=== PATIENT | male | born 2000 | race Caucasian/White ===

== ENCOUNTER 2021-11-13 19:36 | Emergency (ER) | payer MEDICARE, MEDICAID, SELFPAY ==
[2021-11-13 19:48] VITALS: BP 130/82; PULSE 120; RESP 25; TEMP 36.8; O2SAT 98; BMI 28.5
[2021-11-13] MEDS: HaloperidoL 5 MG TABLET PO (21:27)
[2021-11-13] MEDS: LORazepam 1 MG TABLET 2 MG PO (21:27)
[2021-11-13 21:39] LABS: COVID-19 Test Negative (Negative)
--- NOTE | 2021-11-13 22:26 | PC.NURSE ---
Patient uncooperative with care, demanding discharge refused to hand over his phone, patient was explained whole ED POD process, agreed to take po medication, Haldol 5 mg PO and Ativan 2 mg po administered at 2126 as ordered with positive effect, patient currently in bed appears sleeping, VSS, will continue to monitor.
--- NOTE | 2021-11-14 00:11 | ED.PSYCH ---
HPI - Psych General Chief Complaint: Psychiatric Symptoms Stated Complaint: Crisis/SI w attempt Time Seen by Provider: 11/13/21 20:49 Source: patient and RN notes reviewed Mode of arrival: ambulatory Limitations: other (Patient poor historian and appears to be in an acute crisis.) History of Present Illness HPI Narrative: This is a 21-year-old male history of schizophrenia and bipolar disorder presenting to the emergency department with a [facility] staff for for a psychiatric evaluation. According to patient he is a lot of stress going on, he tells me he tried to reach out to crisis however they did not want help me he tells me he decided to come in willingly to the emergency department because I need help . He tells me there is too much going on in his mind for him to tell me what is going on. Tells me he is anxious, depressed. He tells me he feels like he is having a head barlow . He tells me that there is a precipitating event however he is not able to elaborate on this event. He endorses visual and auditory hallucinations. He tells me he uses ecstasy sometimes and smokes weed. Denies any other drugs, alcohol and tobacco use. He denies homicidal ideation. Makes vague SI comments without specific plan. Denies medical complaints at this time. Patient is a very poor historian and I am unable to get a great history on this patient however I did build a good report with the patient, he is following instructions, cooperative. MD complaint: suicidal ideation, feels depressed and anxiety History of same: Yes Relieving factors: none Exacerbating factors: none Associated psychiatric symptoms: none Associated symptoms: denies other symptoms Treatments prior to arrival: none If self harm: admits thoughts of self harm Related Data Home Medications Medication Instructions Recorded Confirmed No Known Home Meds 11/13/21 11/13/21 Allergies Allergy/AdvReac Type Severity Reaction Status Date / Time No Known Allergies Allergy Verified 11/13/21 19:55 Review of Systems Review of Systems: Constitutional : No Weight loss, No Fever, No Chills, No Fatigue, No Malaise ENT/Mouth : No sore throat, No Rhinorrhea Eyes: No Eye Pain, No Swelling, No Redness Cardiovascular : No Chest Pain, No SOB, No Dyspnea on Exertion, No Orthopnea, No Edema, No Palpitations Respiratory : No Cough, No Sputum, No Wheezing Gastrointestinal : No Nausea, No Vomiting, No Diarrhea, No Constipation, No abdominal Pain, No Hematochezia, No Melena Genitourinary : No Dysuria, No Urinary Frequency, No Hematuria, Musculoskeletal : No joint pain, No Myalgias, No Joint Swelling Skin : No Skin Lesions, No rash Neuro : No Weakness, No Numbness, No Dizziness, No Headache Psych : + Anxiety/Panic, + Depression, + SI All other systems reviewed and are negative Yes all other systems are reviewed and are negative [facility] Past Medical History Attestation statement: The following information was validated with the patient. Source: old records reviewed and nursing notes reviewed Social History Social History Advance Directives: No Advance Directives Information Provided: No Physical Exam Vital Signs: Vital Signs: Last Vital Signs Temp 98.3 F 11/13/21 19:48 Pulse 120 H 11/13/21 19:48 Resp 25 H 11/13/21 19:48 BP 130/82 11/13/21 19:48 Pulse Ox 98 11/13/21 19:48 BMI result Body Mass Index 28.5 VSS Appearance: Alert.? Oriented X3.? No acute distress.? Head: Normocephalic, atraumatic, no step-offs or deformities Eyes: Pupils equal, round and reactive to light.? ENT: Pharynx normal.? Neck: Normal inspection.? Neck supple.? CVS: Normal heart rate and rhythm.? Pulses normal.? Respiratory: No respiratory distress.? Breath sounds normal.? Abdomen: Soft and nontender.? Skin: Skin warm and dry.? Normal skin color.? Normal skin turgor.? Extremities: No lower extremity edema.? No calf ttp. 5/5 strength to bilateral upper and lower extremities Back: No midline tenderness, no C-spine tenderness, full range of motion, no CVA tenderness bilaterally Neuro: Oriented X 3.? No motor deficit.? No sensory deficit. CN 2-12 intact Course Reevaluation(s) Reevaluation #1: Patient is COVID negative. He continues to refuse lab work. Multiple techs from the behavioral pod have tried to draw this patient's labs however he has refuse. We will continue to try. At this time patient will be placed in physician observation to allow more time for patient to be evaluated by the behavioral health team. At time the observation was started patient common cooperative no acute distress with stable vitals. Gave report to Dr. Jones Time: 01:16 MDM - Psych MDM Narrative Medical decision making narrative: 2014 This is a 21-year-old male presenting to the emergency department with acute psychiatric crisis. Physical examination significant for tearful, anxious male. No other abnormalities. Patient was starting to get worked up when he had to get changed over, and had to give up his phone. Very agitated trying to leave the department. Initially he was becoming aggressive however I was able to speak to patient with security by my side, deescalated the situation. Patient agreed to p.o. medication gave patient's Zyprexa and Ativan and he tells me he feels like he needs something to help him calmed down and to stop the voices in his head. Patient willingly took these medications. Plan at this time is medical clearance Medical Records Attestation: I reviewed the patient's medical records. Lab Data Attestation: I reviewed the patient's lab results. Labs: Lab Results 11/13/21 Range/Units 21:16 COVID-19 (BILLY) Negative (Negative) COVID-19 Clin Com See Note Critical Care Time Critical Care Time Critical Care Time: No Discharge Plan Discharge Clinical Impression: Acute psychosis Patient Disposition: Still a Patient Prescriptions: No Action No Known Home Meds 0RF
--- NOTE | 2021-11-14 01:02 | PC.NURSE ---
PT refused labs at this time PA was notify
--- NOTE | 2021-11-14 05:29 | PC.NURSE ---
Patient slept through the night, no distress observed/reported, medication compliant, VSS, Behavior non concerning, BHN referral completed/confirmed/pending evaluation am, will continue to monitor.
--- NOTE | 2021-11-14 05:45 | PC.NURSE ---
Patient refused blood order, stated he is afraid of needle, provider and lab notified, urine pending
--- NOTE | 2021-11-14 07:03 | PC.NURSE ---
patient appears to remain asleep at present respirations are even and unlabored patient appears in no distress
--- NOTE | 2021-11-14 12:51 | MHC.CARE ---
Pt seen by N for crisis assessment, disposition was for inpatient level of care and N will do bed search and get insurance authorization.
[2021-11-14 14:52] VITALS: BP 122/77; PULSE 84; TEMP 37.3; O2SAT 98
--- NOTE | 2021-11-14 15:49 | PC.NURSE ---
client came out and expressed desire to be reassessed by bhn. expressed this desire to care team. patient seemed to feel this was unfair and expressed this to t/w.
--- NOTE | 2021-11-14 16:44 | PC.NURSE ---
patient has female friend visitor.
[2021-11-15 01:29] LABS: Amphetamine Screen Urine Not Detected (Not Detect); Barbiturates, Urine Not Detected (Not Detect); Benzodiazepines Screen Urine Not Detected (Not Detect); Cannabinoid Screen Urine POSITIVE (Not Detect); Cocaine Screen Urine Not Detected (Not Detect); Fentanyl, urine Not Detected (Not Detect); Opiate Screen Urine Not Detected (Not Detect); Phencyclidine Screen Urine Not Detected (Not Detect)
[2021-11-15 02:57] VITALS: BP 125/72; PULSE 70; RESP 17; TEMP 37.3; O2SAT 97
--- NOTE | 2021-11-15 06:23 | PC.NURSE ---
Patient slept through the night, no distress observed/reported, currently not on any medication, VSS, behavior calm and non concerning, disposition per [facility] is section 12 inpatient bed search, no update on bed search, will continue to monitor.
--- NOTE | 2021-11-15 07:30 | PC.NURSE ---
patient appears to remain asleep at present respirations are even and unlabored patient appears in no distress
== END 2021-11-15 10:20 | disposition home or self-care (01) ==
PROVIDERS: Physician Assistant Medical; Emergency Provider Internal Medicine
DX: F31.9 Bipolar disorder, unspecified (principal); R45.851 Suicidal ideations; F29 Unspecified psychosis not due to a substance or known physiological condition; F12.90 Cannabis use, unspecified, uncomplicated; Z20.822 Contact with and (suspected) exposure to COVID-19; Z79.899 Other long term (current) drug therapy
CPT/HCPCS: 80307; 87635; 99284; 99285

== ENCOUNTER 2023-02-28 11:55 | Inpatient (IN) | payer OTHER, SELFPAY ==
[2023-02-28 12:03] VITALS: BP 180/100; PULSE 87; PULSE 99; RESP 18; TEMP 36.6; O2SAT 99; BMI 30.3
--- NOTE | 2023-02-28 12:03 | ECG_ITS ---
Test Reason : MED CLEARANCE Blood Pressure : / mmHG Vent. Rate : 076 BPM Atrial Rate : 076 BPM P-R Int : 132 ms QRS Dur : 100 ms QT Int : 374 ms P-R-T Axes : 053 051 015 degrees QTc Int : 420 ms Normal sinus rhythm with sinus arrhythmia Normal ECG No previous ECGs available Referred By: Katherine Anderson Electronically Signed By:Edgar Champion
[2023-02-28 12:12] VITALS: BP 148/95; PULSE 87; RESP 18; TEMP 36.6; O2SAT 99
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
[2023-02-28 12:40] LABS: MANUAL DIFF FLAG NO
[2023-02-28 12:47] LABS: Basophils Absolute Auto 0.1 X10*3/uL (0.0-0.2); Basophils Percent Auto 0.7 % (0-2); Eosinophils Absolute Auto 0.2 X10*3/uL (0.0-0.4); Eosinophils Percent Auto 2.3 % (0-4); Hematocrit 49.4 % (42.0-52.0); Hemoglobin 16.4 g/dl (14.0-18.0); Imm Gran Abs Auto 0.02 X10*3/uL (0.00-0.03); Imm Gran Pct Auto 0.2 % (0.0-0.4); Lymphocytes Absolute Auto 3.2 X10*3/uL (1.2-4.9); Mean Corpuscular HGB Conc 33.2 g/dl (31.0-36.0); Mean Corpuscular Volume 84.3 fL (80.0-98.0); Mean Platelet Volume 9.3 fL (9.4-12.4); Monocytes Absolute Auto 0.7 X10*3/uL (0.1-1.2); Monocytes Percent Auto 8.9 % (2-11); Neutrophils Absolute Auto 4.2 x10*3/uL (2.0-8.3); Neutrophils Percent Auto 49.9 % (45-73); Platelet Count 359 X10*3/uL (160-400); Red Blood Count 5.86 X10*6/uL (4.60-5.80); Red Cell Distribution Width 13.5 % (11.0-16.0); White Blood Count 8.3 X10*3/uL (4.8-10.8)
--- NOTE | 2023-02-28 12:52 | PC.NURSE ---
Patients girlfriend visiting at this time
[2023-02-28 13:00] LABS: Acetaminophen LAB < 17 mcg/mL (<30); Alanine Aminotransferase 120 U/L (0-40); Albumin Level 4.5 g/dL (3.5-5.0); Alkaline Phosphatase 77 U/L (39-117); Anion Gap 16 (12-20); Aspartate Amino Transferase 48 U/L (5-37); Bilirubin Total 0.7 mg/dL (0.0-1.0); Blood Urea Nitrogen 9 mg/dL (9-16); Calcium 9.5 mg/dL (8.4-10.2); Carbon Dioxide 22 mmol/L (22-29); Chloride 105 mmol/L (96-108); Creatinine Clr Calc Pharmacy 148.7; Estimated Glomerular Filt Rate > 60; Ethanol < 10 mg/dL; Glucose Random 98 mg/dL (60-115); Salicylate < 5.0 mg/dL (15-30); Sodium 139 mmol/L (135-145)
[2023-02-28 13:14] LABS: COVID-19 Test Negative (Negative); IDNOW Serial# 6674DD1D
--- NOTE | 2023-02-28 13:15 | ED_ITS ---
HPI - Psych General Chief Complaint: Psychiatric Symptoms Stated Complaint: SEC 12 Time Seen by Provider: 02/28/23 12:04 Source: patient, EMS and RN notes reviewed Mode of arrival: ambulatory Limitations: no limitations History of Present Illness HPI Narrative: Patient is a 22-year-old male with history of schizophrenia and bipolar disorder presenting to the Emergency Department on a Section 12 after reportedly making suicidal statements at home and becoming aggressive towards his family. Patient currently denies any suicidal or homicidal ideations. He denies any auditory or visual hallucinations. He states that his mother recently became his legal guardian and was ?trying to make a point. ? He states he has been with his girlfriend every day this week and that she can verify he has not performed any self-harm behaviors. He denies any physical complaints. MD complaint: suicidal ideation Onset (ago): hour(s) Associated symptoms: denies other symptoms Treatments prior to arrival: none Related Data Home Medications Medication Instructions Recorded Confirmed duloxetine 60 mg PO DAILY 02/28/23 02/28/23 famotidine 20 mg tablet 20 mg PO BID 02/28/23 02/28/23 trazodone 50 mg tablet 50 mg PO BEDTIME 02/28/23 02/28/23 Allergies Allergy/AdvReac Type Severity Reaction Status Date / Time No Known Allergies Allergy Verified 11/13/21 19:55 Review of Systems Review of Systems: As per HPI. Yes all other systems are reviewed and are negative Constitutional: Constitutional: Reports as per HPI [facility] Social History Social History Alcohol intake: current Alcohol intake frequency: a few times a week Smoked in Last 30 Days: Yes Use of substances other than those prescribed or required for medical reasons: Yes Substance Use Type: Marijuana Substance Use Frequency: Chronic Longstanding Advance Directives: No Advance Directives Information Provided: No Physical Exam Vital Signs: Vital Signs: Last Vital Signs Temp 98 F 03/01/23 20:57 Pulse 68 03/01/23 20:57 Resp 18 03/01/23 20:57 BP 141/86 H 03/01/23 20:57 Pulse Ox 98 03/01/23 20:57 O2 Del Method Room Air 03/01/23 20:57 BMI result Body Mass Index 30.3 Vital signs have been reviewed and appear to be correct. Blood pressure elevated. Heart rate normal. Respiratory rate normal. Temperature normal. Oxygen saturation normal. Const: General: cooperative, healthy appearing and no acute distress Orientation/consciousness: oriented to person, oriented to place, oriented to time and patient oriented x3 Limitations: no limitations HEENT: Head: Yes normocephalic and Yes atraumatic Ears: external ears normal General nose exam: Normal external nose present Face and sinus: Yes face symmetric Mouth: oropharynx normal and moist mucous membranes Throat: Yes uvula midline Eyes: Pupils: Equal, round and reactive pupils present Neck: Neck: Yes normal visual inspection and Yes supple Resp: Effort & Inspection: normal respiratory effort and able to speak in complete sentences Auscultation: clear to auscultation bilaterally Cardio: Rate: regular rate Rhythm: regular rhythm Heart sounds: S1 normal heart sound present and S2 normal heart sound present GI: Palpation (GI): Soft to palpation and nontender Auscultation: normoactive bowel sounds : General: Yes no CVA tenderness Back/Spine/Pelvis: Back: no CVA tenderness Skin: General skin exam: elasticity normal and turgor normal Neuro: General: oriented to person, oriented to place, oriented to time, patient oriented x3, moves all extremities, no focal motor deficits and CN's II- XI intact bilaterally Cranial nerves: Yes Equal, round and reactive pupils present Cognition (Neuro): normal cognition Extrem: General: Yes full ROM, Yes no pedal edema and Yes no calf tenderness Psych: Appearance: grossly normal Mental Status: mental status grossly normal Speech and movement: Normal speech and movement present and Clear speech present Affect: normal affect Attitude: cooperative Thought process: Normal thought process present Thought content: suicidality, no homicidality, no delusions, no hallucinations and No Depressive thoughts present Insight: Fair insight present (Psych) Judgement: Fair judgement present (Psych) Course Reevaluation(s) Reevaluation #1: No events reported by the nurse overnight, VSS, continue Section 12, await for care team evaluation and disposition, continue with physician observation. Time: 08:33 Reevaluation #2: No acute events overnight, continue physician observation, inpatient bed search. Time: 07:21 Medications Administered Generic Name Dose Route Start Last Admin Trade Name Freq PRN Reason Stop Dose Admin Duloxetine HCl 60 mg 02/28/23 15:45 03/01/23 09:20 Duloxetine Hcl 60 Mg Capsule. PO 60 mg DAILY KAY Administration Famotidine 20 mg 02/28/23 21:00 03/01/23 20:42 Famotidine 20 Mg Tablet PO Not Given BID KAY Trazodone HCl 50 mg 02/28/23 21:00 03/01/23 20:42 Trazodone Hcl 50 Mg Tablet PO 50 mg BEDTIME KAY Administration Medical Decision Making Medical Decision Making [facility] Narrative: Patient is a 22-year-old male with history of schizophrenia and bipolar disorder presenting to the Emergency Department on a Section 12 after reportedly making suicidal statements at home and becoming aggressive towards his family. On exam patient is awake, A+Ox3, VS WNL, afebrile, normal neurological exam without focal deficits, calm and cooperative, denies suicidal or homicidal ideation, denies hallucinations. Given reported symptoms and physical exam findings, initial differential includes anxiety, depression, bipolar disorder. Labs notable for negative Tylenol/salicylates/etoh, mild elevation of LFTs, otherwise unremarkable. Covid negative. Patient denies any abdominal pain. Will medically clear patient and place on physician observation pending CARE team eval. Differential Diagnosis Differential Diagnoses: The differential diagnosis associated with the presentation includes As per MDM. Admission/Observation Consideration of admission/observation: Escalation of care including admission/observation considered Lab Data [facility] Lab Attestation statement: I reviewed the patient's lab results. As per [facility]. 02/28/23 12:39 02/28/23 12:39 Labs: Lab Results 02/28/23 02/28/23 02/28/23 Range/Units 12:39 12:39 12:39 WBC (4.8-10.8) X10*3/uL RBC (4.60-5.80) X10*6/uL Hgb (14.0-18.0) g/dl Hct (42.0-52.0) % MCV (80.0-98.0) fL MCH (27.0-33.0) pg MCHC (31.0-36.0) g/dl RDW (11.0-16.0) % Plt Count (160-400) X10*3/uL MPV (9.4-12.4) fL Immature Gran % (Auto) (0.0-0.4) % Neut % (Auto) (45-73) % Lymph % (Auto) (20-40) % [place] % (Auto) (2-11) % Eos % (Auto) (0-4) % Baso % (Auto) (0-2) % Lymph # (Auto) (1.2-4.9) X10*3/uL [place] # (Auto) (0.1-1.2) X10*3/uL Eos # (Auto) (0.0-0.4) X10*3/uL Baso # (Auto) (0.0-0.2) X10*3/uL Abs Immat Gran (auto) (0.00-0.03) X10*3/uL Absolute Neuts (auto) (2.0-8.3) x10*3/uL Absolute Nucleated RBC (0.0-0.012) X10*3/uL Nucleated RBC % (auto) (0.0-0.2) /100WBC Sodium 139 (135-145) mmol/L Potassium 4.0 (3.3-5.1) mmol/L Chloride 105 (96-108) mmol/L Carbon Dioxide 22 (22-29) mmol/L Anion Gap 16 (12-20) BUN 9 (9-16) mg/dL Creatinine 0.87 (0.5-1.4) mg/dL Estim Creat Clear Calc 148.7 Estimated GFR > 60 Random Glucose 98 (60-115) mg/dL Calcium 9.5 (8.4-10.2) mg/dL Total Bilirubin 0.7 (0.0-1.0) mg/dL AST 48 H (5-37) U/L ALT 120 H (0-40) U/L Alkaline Phosphatase 77 (39-117) U/L Total Protein 8.0 (6.5-8.0) g/dL Albumin 4.5 (3.5-5.0) g/dL Urine Color Urine Appearance Urine pH (5.0-9.0) Ur Specific [place] (1.005-1.025) Urine Protein (Neg-Trace) mg/dL Urine Glucose (UA) (Negative) mg/dL Urine Ketones (Negative) mg/dL Urine Blood (Negative) Urine Nitrite (Negative) Ur Leukocyte Esterase (Negative) Salicylates < 5.0 L (15-30) mg/dL Urine Opiates Screen (Not Detect) Urine Fentanyl Screen (Not Detect) Acetaminophen < 17 (<30) mcg/mL Ur Barbiturates Screen (Not Detect) Ur Phencyclidine Scrn (Not Detect) Ur Amphetamines Screen (Not Detect) U Benzodiazepines Scrn (Not Detect) Urine Cocaine Screen (Not Detect) U Marijuana (THC) Screen (Not Detect) Ethyl Alcohol < 10 mg/dL COVID-19 (BILLY) Negative (Negative) COVID-19 Clin Com See Note 02/28/23 02/28/23 02/28/23 Range/Units 12:39 16:41 16:41 WBC 8.3 (4.8-10.8) X10*3/uL RBC 5.86 H (4.60-5.80) X10*6/uL Hgb 16.4 (14.0-18.0) g/dl Hct 49.4 (42.0-52.0) % MCV 84.3 (80.0-98.0) fL MCH 28.0 (27.0-33.0) pg MCHC 33.2 (31.0-36.0) g/dl RDW 13.5 (11.0-16.0) % Plt Count 359 (160-400) X10*3/uL MPV 9.3 L (9.4-12.4) fL Immature Gran % (Auto) 0.2 (0.0-0.4) % Neut % (Auto) 49.9 (45-73) % Lymph % (Auto) 38.0 (20-40) % [place] % (Auto) 8.9 (2-11) % Eos % (Auto) 2.3 (0-4) % Baso % (Auto) 0.7 (0-2) % Lymph # (Auto) 3.2 (1.2-4.9) X10*3/uL [place] # (Auto) 0.7 (0.1-1.2) X10*3/uL Eos # (Auto) 0.2 (0.0-0.4) X10*3/uL Baso # (Auto) 0.1 (0.0-0.2) X10*3/uL Abs Immat Gran (auto) 0.02 (0.00-0.03) X10*3/uL Absolute Neuts (auto) 4.2 (2.0-8.3) x10*3/uL Absolute Nucleated RBC 0.000 (0.0-0.012) X10*3/uL Nucleated RBC % (auto) 0.0 (0.0-0.2) /100WBC Sodium (135-145) mmol/L Potassium (3.3-5.1) mmol/L Chloride (96-108) mmol/L Carbon Dioxide (22-29) mmol/L Anion Gap (12-20) BUN (9-16) mg/dL Creatinine (0.5-1.4) mg/dL Estim Creat Clear Calc Estimated GFR Random Glucose (60-115) mg/dL Calcium (8.4-10.2) mg/dL Total Bilirubin (0.0-1.0) mg/dL AST (5-37) U/L ALT (0-40) U/L Alkaline Phosphatase (39-117) U/L Total Protein (6.5-8.0) g/dL Albumin (3.5-5.0) g/dL Urine Color Yellow Urine Appearance Clear Urine pH 7.0 (5.0-9.0) Ur Specific [place] 1.025 (1.005-1.025) Urine Protein Trace (Neg-Trace) mg/dL Urine Glucose (UA) Negative (Negative) mg/dL Urine Ketones Negative (Negative) mg/dL Urine Blood Negative (Negative) Urine Nitrite Negative (Negative) Ur Leukocyte Esterase Negative (Negative) Salicylates (15-30) mg/dL Urine Opiates Screen Not Detected (Not Detect) Urine Fentanyl Screen Not Detected (Not Detect) Acetaminophen (<30) mcg/mL Ur Barbiturates Screen Not Detected (Not Detect) Ur Phencyclidine Scrn Not Detected (Not Detect) Ur Amphetamines Screen Not Detected (Not Detect) U Benzodiazepines Scrn Not Detected (Not Detect) Urine Cocaine Screen Not Detected (Not Detect) U Marijuana (THC) Screen POSITIVE H (Not Detect) Ethyl Alcohol mg/dL COVID-19 (BILLY) (Negative) COVID-19 Clin Com Independent Interpretation I performed an independent interpretation of an: EKG Interpretation: Normal sinus rhythm, rate 76 bpm, normal MN and QT intervals. External Record Review External record reviewed: Inpatient record, Office record and Outpatient record Discharge Plan Discharge Clinical Impression: Suicidal ideation Patient Disposition: Still a Patient Prescriptions: No Action trazodone 50 mg tablet 50 mg PO BEDTIME famotidine 20 mg tablet 20 mg PO BID duloxetine tablet 60 mg PO DAILY Interventions: [place]-Suicide Risk Severity Scale Last Done: 03/02/23 03:57
--- NOTE | 2023-02-28 13:53 | PC.NURSE ---
Per August at [facility] patient has been staying at an apt in [place] with his uncle. Patient is not on the lease and is not able to return to the apartment. [facility] stating patient is homeless
--- NOTE | 2023-02-28 14:04 | PC.NURSE ---
Per pharmacist at [facility] on [address] stating trazodone 50mg was last filled february 16. Duloxetine 60mg ER daily was called in but was never picked up by patient.
--- NOTE | 2023-02-28 14:18 | MHC.EDTECH ---
Pt's mom dropped off some legal documents and ankle bracelet duplicate maker. T/w placed both chargers in Locker #1.
--- NOTE | 2023-02-28 15:18 | PC.NURSE ---
Legal guardian provided guardianship for an incapacitated person paperwork. temp guardianship expires february 28, 2023. guardian completed authorization to disclose protected health information for Jessica Tapia to access information related to patients location for probation location information.
[2023-02-28] MEDS: DULoxetine HCl 60 MG CAPSULE.DR PO (16:11)
[2023-02-28 16:58] LABS: Appearance Urine Clear; Color Urine Yellow; Glucose Urine UA Negative (Negative); Leukocyte Esterase Urine Negative (Negative); Nitrite Urine Negative (Negative); Specific Gravity - Urine 1.025 (1.005-1.025); Urine Blood Negative (Negative); Urine Ketones Negative (Negative); Urine Protein Trace mg/dL (Neg-Trace)
[2023-02-28 17:08] LABS: Amphetamine Screen Urine Not Detected (Not Detect); Barbiturates, Urine Not Detected (Not Detect); Benzodiazepines Screen Urine Not Detected (Not Detect); Cannabinoid Screen Urine POSITIVE (Not Detect); Cocaine Screen Urine Not Detected (Not Detect); Fentanyl, urine Not Detected (Not Detect); Opiate Screen Urine Not Detected (Not Detect); Phencyclidine Screen Urine Not Detected (Not Detect)
--- NOTE | 2023-02-28 17:46 | PC.NURSE ---
calm and cooperative, po med as ordered, denies pain or discomfort. Sitting in common area watching t.v at this time
[2023-02-28 18:14] VITALS: BP 129/78; PULSE 73; RESP 17; TEMP 36.4; O2SAT 97
[2023-02-28] MEDS: traZODone HCL 50 MG TABLET PO (19:54)
--- NOTE | 2023-03-01 06:01 | PC.NURSE ---
Patient slept through the night, selectively compliant with medication, per mother who is also the legal guardian of the patient reported patient is off his medication, patient was assessed by care team with disposition section section 12 inpatient bed search, patient has right ankle monitor, behavior non concerning, VSS, labs completed/resulted, will continue to monitor.
[2023-03-01] MEDS: Famotidine 20 MG TABLET PO (09:20)
[2023-03-01] MEDS: DULoxetine HCl 60 MG CAPSULE.DR PO (09:20)
--- NOTE | 2023-03-01 09:41 | PC.NURSE ---
notified that patient will have a bed at some point today. Patient has been calm and cooperative
--- NOTE | 2023-03-01 13:53 | PC.NURSE ---
PT woke up around 1pm agitated tearful disorganized thinking. Verbal out burst with care team when told she is going in patient.
--- NOTE | 2023-03-01 15:10 | PHA.MEDREC ---
Pharmacy Consult ? Medication Reconciliation Pharmacy has reviewed the medication reconciliation completed by nursing.
[2023-03-01] MEDS: traZODone HCL 50 MG TABLET PO (20:42)
[2023-03-01 20:57] VITALS: BP 141/86; PULSE 68; RESP 18; TEMP 36.6; O2SAT 98
--- NOTE | 2023-03-02 06:43 | PC.NURSE ---
Patient slept through the night, compliant with medication, patient was assessed by care team with disposition section section 12 inpatient bed search, possible admission today M3 or M5, patient has right ankle monitor, behavior non concerning, VSS, labs completed/resulted, will continue to monitor.
[2023-03-02] MEDS: DULoxetine HCl 60 MG CAPSULE.DR PO (09:49)
[2023-03-02] MEDS: Famotidine 20 MG TABLET PO ×2 (09:49→20:56)
[2023-03-02 09:51] VITALS: BP 135/73; PULSE 84; RESP 12; TEMP 36.7; O2SAT 99
--- NOTE | 2023-03-02 09:57 | PC.NURSE ---
assumed care of pt at 0700, resting quietly in room, medicated per SEP.
--- NOTE | 2023-03-02 12:22 | PC.NURSE ---
Assumed care for patient at 1100, pt is resting comfortably in bed at this time. Pt is on a 1:1 at this time due to ankle bracelet charging. Pt offers no complaints to this RN at this time
--- NOTE | 2023-03-02 13:12 | PC.NURSE ---
gave report to GAURANG Capellan on M5
[2023-03-02 14:44] VITALS: BP 160/91; PULSE 88; RESP 16; TEMP 36.2; O2SAT 98
--- NOTE | 2023-03-02 14:47 | PC.NURSE ---
03/02/23Tuesday Pt. signed a 3-day notice, up on 03/07/23Tuesday
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
--- NOTE | 2023-03-02 18:38 | PC.NURSE ---
T/w spoke with pt's legal guardian, Shayy Begum. She reported that verification of hospital admission and potential discharge dates needs to be faxed to pt's foreign service officer, Jessica Tapia (fax [phone]), out of [facility] [address], as soon as possible. Pt is on home confinement, and his GPS monitor continues to go off due to being at the hospital, and that a warrant will be put out for his arrest if the verification is not faxed. Dr. Bautista, Dr. Godinez, Irina Smart, and Tari Horne notified.
[2023-03-02 20:21] VITALS: BP 137/81; PULSE 84; TEMP 36.6
[2023-03-02] MEDS: traZODone HCL 50 MG TABLET PO (20:56)
[2023-03-03] MEDS: DULoxetine HCl 60 MG CAPSULE.DR PO (09:16)
[2023-03-03] MEDS: Famotidine 20 MG TABLET PO ×2 (09:16→22:15)
[2023-03-03 09:20] VITALS: BP 140/100; PULSE 85; RESP 18; TEMP 36.3; O2SAT 98
[2023-03-03 09:23] LABS: Estimated Average Glucose 100 mg/dL; Hemoglobin A1c % 5.1 %
[2023-03-03 09:34] LABS: Cholesterol 180 mg/dL; HDL Cholesterol 37 mg/dL; LDL Cholesterol Calculated 118 mg/dl; Magnesium 2.3 mg/dL (1.6-2.6); Triglycerides 128 mg/dL
[2023-03-03 09:42] LABS: Thyroid Stimulating Hormone 0.76 uIU/mL (0.32-4.0)
[2023-03-03 10:00] LABS: Folate 16.4 ng/mL (> or = 4.0); Vitamin B12 476 pg/mL (200-900)
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
[2023-03-03] MEDS: Lidocaine 4 % Patch ADH..PATCH 1 PATCH TRANSDERMA (11:46)
[2023-03-03] MEDS: Nicotine Polacrilex 2 MG GUM BUCCAL (11:56)
[2023-03-03 21:35] VITALS: BP 135/76; PULSE 84; TEMP 36.4; O2SAT 97
[2023-03-03] MEDS: traZODone HCL 50 MG TABLET PO (22:15)
[2023-03-03] MEDS: QUEtiapine Fumarate 200 MG TABLET PO (22:15)
[2023-03-04] MEDS: DULoxetine HCl 60 MG CAPSULE.DR PO (09:27)
[2023-03-04] MEDS: Famotidine 20 MG TABLET PO ×2 (09:27→22:09)
[2023-03-04 09:30] VITALS: BP 119/77; PULSE 78; RESP 18; TEMP 36.5
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
[2023-03-04 20:00] VITALS: BP 139/83; PULSE 93; RESP 18; TEMP 36.4; O2SAT 97
[2023-03-04] MEDS: traZODone HCL 50 MG TABLET PO (22:09)
[2023-03-04] MEDS: QUEtiapine Fumarate 200 MG TABLET PO (22:09)
[2023-03-05] MEDS: DULoxetine HCl 60 MG CAPSULE.DR PO (09:37)
[2023-03-05] MEDS: Famotidine 20 MG TABLET PO ×2 (09:37→22:06)
[2023-03-05 09:39] VITALS: BP 132/77; PULSE 71; RESP 18; TEMP 36.6; O2SAT 97
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
[2023-03-05 16:31] VITALS: BP 158/61; PULSE 92; TEMP 36.4; O2SAT 97
[2023-03-05] MEDS: traZODone HCL 50 MG TABLET PO (22:06)
[2023-03-05] MEDS: QUEtiapine Fumarate 200 MG TABLET PO (22:06)
[2023-03-06] MEDS: Famotidine 20 MG TABLET PO ×2 (09:18→22:14)
[2023-03-06] MEDS: DULoxetine HCl 60 MG CAPSULE.DR PO (09:18)
[2023-03-06 09:20] VITALS: BP 124/78; PULSE 78; RESP 18; TEMP 36.2; O2SAT 99
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
[2023-03-06 19:30] VITALS: BP 136/85; PULSE 104; RESP 18; TEMP 36.4; O2SAT 98
[2023-03-06] MEDS: QUEtiapine Fumarate 200 MG TABLET PO (22:14)
[2023-03-06] MEDS: traZODone HCL 50 MG TABLET PO (22:14)
[2023-03-07 08:00] VITALS: BP 149/95; PULSE 102; RESP 18; TEMP 36.9; O2SAT 97
[2023-03-07] MEDS: Famotidine 20 MG TABLET PO (09:27)
[2023-03-07] MEDS: DULoxetine HCl 60 MG CAPSULE.DR PO (09:28)
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
== END 2023-03-07 11:35 | disposition home or self-care (01) | DRG 885 ==
LOC: HO.ED 03-01 06:27 → HO.PM5 03-02 13:45
PROVIDERS: Physician Assistant Medical; Admitting Provider Psychiatry & Neurology Psychiatry; Emergency Provider Emergency Medicine; Visit Provider Clinical Nurse Specialist Psychiatric/Mental Health, Adult
DX: F20.9 Schizophrenia, unspecified (principal); R45.851 Suicidal ideations; F12.10 Cannabis abuse, uncomplicated; F17.210 Nicotine dependence, cigarettes, uncomplicated; Z71.6 Tobacco abuse counseling; Z88.0 Allergy status to penicillin; Z79.899 Other long term (current) drug therapy
CPT/HCPCS: 36415; 80053; 80061; 80143; 80179; 80307; 81003; 82607; 82746; 83036; 83735; 84439; 84443; 85025; 87635; 93005; 99285; S9485

== ENCOUNTER → 2023-02-28 12:03 | Outpatient (BNV) | payer OTHER, SELFPAY | PROVIDERS: Emergency Provider Emergency Medicine; Visit Provider Internal Medicine Cardiovascular Disease | DX: I49.9 Cardiac arrhythmia, unspecified (principal) | CPT/HCPCS: 93010 ==

== ENCOUNTER → 2023-03-02 13:42 | Outpatient (BNV) | payer OTHER, SELFPAY | PROVIDERS: Admitting Provider Psychiatry & Neurology Psychiatry; Emergency Provider Emergency Medicine; Visit Provider Clinical Nurse Specialist Psychiatric/Mental Health, Adult | DX: F20.89 Other schizophrenia (principal); F12.90 Cannabis use, unspecified, uncomplicated | CPT/HCPCS: 90792; 99231; 99239 ==

== ENCOUNTER 2023-06-28 16:16 | Inpatient (IN) | payer OTHER, SELFPAY ==
[2023-06-28 16:35] VITALS: BP 125/84; PULSE 97; RESP 18; TEMP 36.3; O2SAT 95
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
--- NOTE | 2023-06-28 17:24 | PC.NURSE ---
Pt refused flu vaccine at this time
[2023-06-28 22:00] VITALS: BP 135/80; PULSE 97; RESP 16; TEMP 36.8; O2SAT 95
[2023-06-29 07:05] VITALS: BP 131/81; PULSE 110; TEMP 36.3; O2SAT 97
[2023-06-29 08:10] LABS: MANUAL DIFF FLAG NO
[2023-06-29 08:15] LABS: Basophils Absolute Auto 0.1 X10*3/uL (0.0-0.2); Basophils Percent Auto 0.6 % (0-2); Eosinophils Absolute Auto 0.4 X10*3/uL (0.0-0.4); Eosinophils Percent Auto 3.3 % (0-4); Hematocrit 54.3 % (42.0-52.0); Hemoglobin 18.2 g/dl (14.0-18.0); Imm Gran Abs Auto 0.04 X10*3/uL (0.00-0.03); Imm Gran Pct Auto 0.3 % (0.0-0.4); Lymphocytes Absolute Auto 3.8 X10*3/uL (1.2-4.9); Lymphocytes Percent Auto 30.4 % (20-40); Mean Corpuscular HGB Conc 33.5 g/dl (31.0-36.0); Mean Corpuscular Hemoglobin 27.9 pg (27.0-33.0); Mean Corpuscular Volume 83.3 fL (80.0-98.0); Mean Platelet Volume 9.8 fL (9.4-12.4); Monocytes Percent Auto 7.8 % (2-11); Neutrophils Absolute Auto 7.3 x10*3/uL (2.0-8.3); Neutrophils Percent Auto 57.6 % (45-73); Platelet Count 367 X10*3/uL (160-400); Red Blood Count 6.52 X10*6/uL (4.60-5.80); Red Cell Distribution Width 13.8 % (11.0-16.0); White Blood Count 12.6 X10*3/uL (4.8-10.8)
[2023-06-29 08:28] LABS: Estimated Average Glucose 108 mg/dL; Hemoglobin A1c % 5.4 % (<6.0)
[2023-06-29 08:39] LABS: Alanine Aminotransferase 209 U/L (0-40); Albumin Level 4.8 g/dL (3.5-5.0); Alkaline Phosphatase 97 U/L (39-117); Anion Gap 15 (12-20); Aspartate Amino Transferase 66 U/L (5-37); Bilirubin Total 0.4 mg/dL (0.0-1.0); Blood Urea Nitrogen 13 mg/dL (9-16); Calcium 10.3 mg/dL (8.4-10.2); Carbon Dioxide 24 mmol/L (22-29); Chloride 104 mmol/L (96-108); Cholesterol 210 mg/dL (<200); Estimated Glomerular Filt Rate > 60; Glucose Fasting 100 mg/dL (60-99); HDL Cholesterol 41 mg/dL (>40); LDL Cholesterol Calculated 117 mg/dL (<100); Potassium 4.1 mmol/L (3.3-5.1); Sodium 139 mmol/L (135-145); Triglycerides 262 mg/dL (<150)
[2023-06-29 08:55] LABS: Free T4 (Free Thyroxine) 0.88 ng/dL (0.71-1.85); Thyroid Stimulating Hormone 0.87 uIU/mL (0.32-4.0)
[2023-06-29 09:08] LABS: Folate 15.9 ng/mL (> or = 4.0); Vitamin B12 534 pg/mL (200-900)
[2023-06-29] MEDS: hydrOXYzine HCL 50 MG TABLET PO (10:38)
--- NOTE | 2023-06-29 11:30 | P.CONHOSP_ITS ---
History of Present Illness Data of Consult Service Date: 06/29/23 Requesting physician: Kishan Redmond Primary Care Provider: Unknown Physician HPI Reason for consult: medical H&P 23-year-old male with history of schizophrenia, bipolar disorder, ADHD, PTSD, and mild intermittent asthma as well as chronic low back pain admitted to Psychiatry from [facility] ED with consult placed to hospitalist service for medical H and P. while in the ED, hematology studies unremarkable, renal function normal, electrolyte levels normal, glucose normal. Urine tox screen positive for THC otherwise negative. He does endorse smoking about 11 cigarettes on a daily basis but denies any alcohol use. He has no complaints at this time. Review of Systems 2 Review of Systems: General: No fevers, malaise, unintentional weight loss HEENT: No blurred vision, diplopia. No sore throat, nasal congestion, rhinorrhea, sinus pain, ear pain Cardiovascular: No chest pain, palpitations, or leg edema Respiratory: No shortness of breath, wheezing, cough GI: No abdominal pain, nausea, vomiting, diarrhea, constipation, melena, hematochezia : No dysuria, hematuria, increased urinary frequency, decreased urinary output MSK: No myalgia, back pain Neuro: No headaches, weakness, paresthesias Skin: No rashes or lesions PMFSH Medical History Asthma Cannabis use disorder Hx of schizophrenia Suicidal ideation Social History Household Members: Family Household Members Other:: uncle Housing: Apartment Do you presently have visiting nurse or other home services: No Alcohol intake: current Alcohol intake frequency: a few times a week Patient Tobacco Use Status: Current everyday Tobacco user Tobacco use type: Cigarette Cigarette Packs Per Day: 0.5 Cigarettes Per Day: 10.0 Years Smoked: since age 13 Smoked in Last 30 Days: Yes e-Cigarette/Vaping Use: Former Use Patient Interested in Nicotine Replacement: Yes Patient Given Instructions on How to Stop Smoking: Yes Date Education Initiated: 06/28/23 Second Hand Smoke Exposure: Yes Use of substances other than those prescribed or required for medical reasons: Yes Substance Use Type: Marijuana Substance Use Frequency: Daily Last Used Substance: Just Prior to Admission Currently Displaying Signs/Symptoms of Drug Intoxication Withdrawal: No Any prior treatment program specific to substance use: No Have you been hit, kicked, punched, or otherwise hurt by someone within the past year? If so, by whom?: No Do you feel safe in your current relationship?: No Current Relationship Is there a partner from a previous relationship who is making you feel unsafe now?: No Are you made to feel afraid or neglected: No Advance Directives: No Advance Directives Information Provided: Yes Do you have thoughts of harming others: None Do you have a plan to hurt others: No Plan Recently lost weight without trying: No Nutrition Risks: No Nutritional Risk Poor oral hygiene: No service: No Sexual orientation: Straight/Heterosexual Meds Allergies Allergy/AdvReac Type Severity Reaction Status Date / Time Penicillins Allergy Unknown Verified 03/02/23 17:39 Active Medications: Current Medications Acetaminophen (Acetaminophen 325 Mg Tablet) 650 mg PO Q6H PRN PRN Reason: Headache/Pain Mild Scale (1-3) Al Hydroxide/Mg Hydroxide (Magnesium Hydrox/Alum Hydrox 30 Ml Oral.Susp) 30 ml PO Q6H PRN PRN Reason: Heartburn/Nausea Albuterol Sulfate (Albuterol Sulfate 90 Mcg 8 Gm Inhaler) 2 puff INHALE RQ4H PRN PRN Reason: wheeze Clonidine HCl (Clonidine Hcl 0.1 Mg Tablet) 0.1 mg PO Q4H PRN; Protocol PRN Reason: Anxiety Hydroxyzine HCl (Hydroxyzine Hcl 50 Mg Tablet) 50 mg PO QID PRN PRN Reason: Anxiety Last Admin: 06/29/23 10:38 Dose: 50 mg Magnesium Hydroxide (Milk Of Magnesia 30 Ml Oral.Susp) 30 ml PO DAILY PRN PRN Reason: Constipation Melatonin (Melatonin 3 Mg Tablet) 6 mg PO BEDTIME PRN PRN Reason: insomnia Nicotine Polacrilex (Nicotine Polacrilex 2 Mg Gum) 4 mg BUCCAL Q2H PRN PRN Reason: Nicotine Cravings Olanzapine (Olanzapine 5 Mg Tablet) 5 mg PO TID PRN PRN Reason: agitation Trazodone HCl (Trazodone Hcl 50 Mg Tablet) 50 mg PO BEDTIME MRX1 PRN PRN Reason: Insomnia Home Medications Medication Instructions Recorded Confirmed Last Taken Type clonidine HCl 0.1 mg tablet 0.1 mg PO BID PRN Anxiety 06/28/23 06/28/23 Unknown History hydroxyzine pamoate 50 mg capsule 50 mg PO QID PRN Anxiety 06/28/23 06/28/23 Unknown History melatonin 3 mg tablet 6 mg PO BEDTIME 06/28/23 06/28/23 Unknown History paliperidone palmitate 117 mg/0.75 117 mg IM Q30D 06/28/23 06/28/23 06/02/23 History mL intramuscular syringe (Invega 234 mg Sustenna) Physical Exam 2 Vital Signs and Narrative: Vital Signs: Last Vital Signs Temp 97.3 F 06/29/23 07:05 Pulse 110 H 06/29/23 07:05 Resp 16 06/28/23 22:00 BP 131/81 06/29/23 07:05 Pulse Ox 97 06/29/23 07:05 O2 Del Method Room Air 06/29/23 07:05 Constitutional - Awake and Alert, No apparent distress Eyes - PERRLA, EOMI Cardiovascular - S1S2, RRR, No edema Respiratory - Normal lung expansion, Normal respiratory effort, No respiratory distress, CTA bilaterally Gastrointestinal - NT / ND; +BS; No rebound or guarding Extremities - no calf tenderness bilaterally, no swelling Musculoskeletal - Normal inspection, normal ROM Skin - Warm/Dry Neurological - Alert & oriented x3, CN II-XII in tact, 5/5 strength BUE and BLE Psychological - Appropriate affect Results Labs 06/29/23 07:52 06/29/23 07:52 Labs: Laboratory Results - last 24 hr 06/29/23 07:52 MCV 83.3 MCH 27.9 MCHC 33.5 RDW 13.8 Plt Count 367 MPV 9.8 Immature Gran % (Auto) 0.3 Neut % (Auto) 57.6 Lymph % (Auto) 30.4 [place] % (Auto) 7.8 Eos % (Auto) 3.3 Baso % (Auto) 0.6 Lymph # (Auto) 3.8 [place] # (Auto) 1.0 Eos # (Auto) 0.4 Baso # (Auto) 0.1 Abs Immat Gran (auto) 0.04 H Absolute Neuts (auto) 7.3 Absolute Nucleated RBC 0.000 Nucleated RBC % (auto) 0.0 Anion Gap 15 Estim Creat Clear Calc TNP Estimated GFR > 60 Fasting Glucose 100 H Estimat Average Glucose 108 Hemoglobin A1c % 5.4 Calcium 10.3 H D Total Bilirubin 0.4 AST 66 H ALT 209 H Alkaline Phosphatase 97 Total Protein 9.0 H Albumin 4.8 Triglycerides 262 H Cholesterol 210 H LDL Cholesterol, Calc 117 H HDL Cholesterol 41 Vitamin B12 534 Folate 15.9 TSH 0.87 Free T4 0.88 Assessment and Plan (1) Routine medical exam: Status: Acute Plan 23-year-old male with history of schizophrenia, bipolar disorder, ADHD, PTSD, and mild intermittent asthma as well as chronic low back pain admitted to Psychiatry from [facility] ED with consult placed to hospitalist service for medical H and P. #Mood/Psychotic disorder -plan per Psychiatry # chronic low back pain -reports good relief with lidocaine patches -continue lidocaine patches, ibuprofen, Tylenol # mild intermittent asthma -no acute exacerbation -albuterol p.r.n. Thank you for allowing me to participate in this consult. Signing off at this time. Please do not hesitate to call for further questions.
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
[2023-06-29] MEDS: Nicotine Polacrilex 2 MG GUM 4 MG BUCCAL (12:51)
[2023-06-29] MEDS: Paliperidone ER 6 MG TAB.ER.24 PO (13:33)
[2023-06-29] MEDS: DULoxetine HCl 30 MG CAPSULE.DR PO (13:33)
[2023-06-29] MEDS: LORazepam 1 MG TABLET PO (13:33)
[2023-06-29] MEDS: Lidocaine 4 % Patch ADH..PATCH 1 PATCH TRANSDERMA (14:11)
[2023-06-29] MEDS: Nicotine 21 MG PATCH.TD24 TRANSDERMA (15:29)
[2023-06-29 20:00] VITALS: BP 139/83; PULSE 106; TEMP 36.5; O2SAT 96
[2023-06-30 07:10] VITALS: BP 142/85; PULSE 108; TEMP 36.1; O2SAT 98
[2023-06-30] MEDS: Lidocaine 4 % Patch ADH..PATCH 1 PATCH TRANSDERMA (08:12)
[2023-06-30] MEDS: Nicotine 21 MG PATCH.TD24 TRANSDERMA (08:12)
[2023-06-30] MEDS: DULoxetine HCl 30 MG CAPSULE.DR PO (08:12)
[2023-06-30] MEDS: OLANZapine 5 MG TABLET PO (08:19)
[2023-06-30] MEDS: hydrOXYzine HCL 50 MG TABLET PO (08:19)
[2023-06-30] MEDS: Ibuprofen 600 MG TABLET PO (08:19)
--- NOTE | 2023-06-30 12:39 | PC.NURSE ---
Call placed to patient Visiting Nurse service Karina [phone] to confirm last Invega dose. Nurse Suzanne to call back, number provided.
--- NOTE | 2023-06-30 13:14 | PC.NURSE ---
Received call from [facility] confirmed last Injection Carlos Bautista administered 06/02/23 117mg next injection due 07/06/23.
--- NOTE | 2023-06-30 14:29 | P.PNPSI_ITS ---
Subjective Subjective Date of Service: 06/30/23 Reason For Visit: F20.9 Interim History: calm, cooperative. unsure when his MCCLENDON is due. c/o some AH, says it is impairing his sleep. also VH of shadows. mood OK, denies SI/SIBI/HI. agreeable to take seroquel for sleep until invega kicks in. per staff, meds and meals compliant. slept about 12 hours. Mental Status Exam Mental Status Exam Narrative: adequately dressed and groomed, cooperative, no PMA/PMR. speech nml rate, amount, loudness. decr tone. nml latency. thoughts linear and logical. affect constricted, normo-intense, non-labile. mood OK. denies SI/SIBI/HI. endorses AVH. Diagnostics Vital Signs (24Hr): Vital Signs - 24 hr 06/29/23 20:00 06/30/23 07:10 Temperature 97.7 F 97 F Pulse Rate 106 H 108 H Blood Pressure 139/83 142/85 H Pulse Oximetry 96 98 Oxygen Delivery Method Room Air Room Air Labs 06/29/23 07:52 06/29/23 07:52 Labs: Laboratory Results - last 48 hr 06/29/23 07:52 WBC 12.6 H RBC 6.52 H Hgb 18.2 H Hct 54.3 H MCV 83.3 MCH 27.9 MCHC 33.5 RDW 13.8 Plt Count 367 MPV 9.8 Immature Gran % (Auto) 0.3 Neut % (Auto) 57.6 Lymph % (Auto) 30.4 [place] % (Auto) 7.8 Eos % (Auto) 3.3 Baso % (Auto) 0.6 Lymph # (Auto) 3.8 [place] # (Auto) 1.0 Eos # (Auto) 0.4 Baso # (Auto) 0.1 Abs Immat Gran (auto) 0.04 H Absolute Neuts (auto) 7.3 Absolute Nucleated RBC 0.000 Nucleated RBC % (auto) 0.0 Sodium 139 Potassium 4.1 Chloride 104 Carbon Dioxide 24 Anion Gap 15 BUN 13 Creatinine 0.91 Estim Creat Clear Calc TNP Estimated GFR > 60 Fasting Glucose 100 H Estimat Average Glucose 108 Hemoglobin A1c % 5.4 Calcium 10.3 H D Total Bilirubin 0.4 AST 66 H ALT 209 H Alkaline Phosphatase 97 Total Protein 9.0 H Albumin 4.8 Triglycerides 262 H Cholesterol 210 H LDL Cholesterol, Calc 117 H HDL Cholesterol 41 Vitamin B12 534 Folate 15.9 TSH 0.87 Free T4 0.88 Medications Medications Current Medications Acetaminophen (Acetaminophen 325 Mg Tablet) 650 mg PO Q6H PRN PRN Reason: Headache/Pain Mild Scale (1-3) Al Hydroxide/Mg Hydroxide (Magnesium Hydrox/Alum Hydrox 30 Ml Oral.Susp) 30 ml PO Q6H PRN PRN Reason: Heartburn/Nausea Albuterol Sulfate (Albuterol Sulfate 90 Mcg 8 Gm Inhaler) 2 puff INHALE RQ4H PRN PRN Reason: wheeze Clonidine HCl (Clonidine Hcl 0.1 Mg Tablet) 0.1 mg PO Q4H PRN; Protocol PRN Reason: Anxiety Duloxetine HCl (Duloxetine Hcl 30 Mg Capsule.Dr) 30 mg PO DAILY [facility] Last Admin: 06/30/23 08:12 Dose: 30 mg Hydroxyzine HCl (Hydroxyzine Hcl 50 Mg Tablet) 50 mg PO QID PRN PRN Reason: Anxiety Last Admin: 06/30/23 08:19 Dose: 50 mg Ibuprofen (Ibuprofen 600 Mg Tablet) 600 mg PO Q6H PRN PRN Reason: low back pain Last Admin: 06/30/23 08:19 Dose: 600 mg Lidocaine (Lidocaine 4 % Patch Adh..Patch) 1 patch TRANSDERMA DAILY [facility]; Protocol Last Admin: 06/30/23 08:12 Dose: 1 patch Magnesium Hydroxide (Milk Of Magnesia 30 Ml Oral.Susp) 30 ml PO DAILY PRN PRN Reason: Constipation Melatonin (Melatonin 3 Mg Tablet) 6 mg PO BEDTIME PRN PRN Reason: insomnia Nicotine (Nicotine 21 Mg Patch.Td24) 21 mg TRANSDERMA DAILY [facility] Last Admin: 06/30/23 08:12 Dose: 21 mg Nicotine Polacrilex (Nicotine Polacrilex 2 Mg Gum) 4 mg BUCCAL Q2H PRN PRN Reason: Nicotine Cravings Last Admin: 06/29/23 12:51 Dose: 4 mg Paliperidone Palmitate (Paliperidone Palmitate 156 Mg/Ml Syringe) 234 mg IM Q30D [facility] Quetiapine Fumarate (Quetiapine Fumarate 100 Mg Tablet) 100 mg PO BEDTIME [facility] Quetiapine Fumarate (Quetiapine Fumarate 100 Mg Tablet) 100 mg PO BEDTIME PRN PRN Reason: insomnia Quetiapine Fumarate (Quetiapine Fumarate 50 Mg Tablet) 50 mg PO Q4H PRN PRN Reason: agitation/psychosis Trazodone HCl (Trazodone Hcl 50 Mg Tablet) 50 mg PO BEDTIME MRX1 PRN PRN Reason: Insomnia Allergies Allergies Allergy/AdvReac Type Severity Reaction Status Date / Time Penicillins Allergy Unknown Verified 03/02/23 17:39 Assessment & Plan Assessment & Plan (1) Schizoaffective disorder: Status: Acute Code(s): F25.9 - Schizoaffective disorder, unspecified (2) Cannabis use disorder: Status: Acute Code(s): F12.90 - Cannabis use, unspecified, uncomplicated Plan 06/29: pt adm with psychosis ck invega sustena will restart tomm ck safety ck hx and rsponse 06/30: per further collateral, sustena not due until 07/06. 234 mg ordered for 07/06. will use seroquel 100-200 mg QHS for insomnia and AVH contol until then (pt c/o AVH presently). Reason for continued inpatient stay Substantial Risk for: inability to function and rapid decompensation Time Spent With Patient Time: Total time managing care of this patient today __35__ minutes.
[2023-06-30 21:40] VITALS: BP 129/69; PULSE 89; TEMP 36.2; O2SAT 97
[2023-06-30] MEDS: Acetaminophen 325 MG TABLET 650 MG PO (21:48)
[2023-06-30] MEDS: QUEtiapine Fumarate 100 MG TABLET PO (21:49)
[2023-07-01 08:38] VITALS: BP 123/80; PULSE 73; RESP 16; TEMP 36.9; O2SAT 98
[2023-07-01] MEDS: DULoxetine HCl 30 MG CAPSULE.DR PO (09:30)
[2023-07-01] MEDS: Nicotine 21 MG PATCH.TD24 TRANSDERMA (09:31)
[2023-07-01] MEDS: hydrOXYzine HCL 50 MG TABLET PO (11:51)
--- NOTE | 2023-07-01 20:15 | HO.PSYCHPN ---
Subjective Subjective Date of Service: 07/01/23 Reason For Visit: F20.9 Subjective Notes: Conditional Voluntary Interim History: The patient states he is feeling somewhat better denies active SI still has auditory hallucinations. Patient reportedly has the pact program on the outside he does have a vNa schedule. Less distraught sleeping better with Seroquel Medication Compliance: Yes Attending Groups: Intermittent Review of Systems Acute medical concerns: No Mental Status Exam Mental Status Exam Patient Appearance: Appropriate Patient Orientation: Person, Place, Time and Situation Level of Consciousness: Awake and Alert Patient Behavior: Talkative, Cooperative, Anxious and Good Eye Contact Mood Description: Anxious and Apprehensive Affect Description: Constricted, Depressed and Apprehensive Patient Cognition Impaired: No Ability to Follow Directions: Good Speech Pattern: Spontaneous Speech Memory Description: Intact Hallucinations: Auditory Delusions: Paranoid Ideation Thought Process: Intact Thought Content: positive for Intact Depressive Symptoms: Increased Anxiety, Thoughts of /Suicide and Difficulty Concentrating Judgement: Fair Judgement and Insight: Less agitated excepting of treatment Diagnostics Vital Signs (24Hr): Vital Signs - 24 hr 06/30/23 21:40 07/01/23 08:38 Temperature 97.1 F 98.4 F Pulse Rate 89 73 Respiratory Rate 16 Blood Pressure 129/69 123/80 Pulse Oximetry 97 98 Oxygen Delivery Method Room Air Room Air Labs 06/29/23 07:52 06/29/23 07:52 Medications Medications Current Medications Acetaminophen (Acetaminophen 325 Mg Tablet) 650 mg PO Q6H PRN PRN Reason: Headache/Pain Mild Scale (1-3) Last Admin: 06/30/23 21:48 Dose: 650 mg Al Hydroxide/Mg Hydroxide (Magnesium Hydrox/Alum Hydrox 30 Ml Oral.Susp) 30 ml PO Q6H PRN PRN Reason: Heartburn/Nausea Albuterol Sulfate (Albuterol Sulfate 90 Mcg 8 Gm Inhaler) 2 puff INHALE RQ4H PRN PRN Reason: wheeze Clonidine HCl (Clonidine Hcl 0.1 Mg Tablet) 0.1 mg PO Q4H PRN; Protocol PRN Reason: Anxiety Duloxetine HCl (Duloxetine Hcl 30 Mg Capsule.Dr) 30 mg PO DAILY [facility] Last Admin: 07/01/23 09:30 Dose: 30 mg Hydrocortisone (Hydrocortisone 1 % Cream 28.35 Gm Tube) 1 appl TOPICAL BID PRN; Protocol PRN Reason: Dry Skin Hydroxyzine HCl (Hydroxyzine Hcl 50 Mg Tablet) 50 mg PO QID PRN PRN Reason: Anxiety Last Admin: 07/01/23 11:51 Dose: 50 mg Ibuprofen (Ibuprofen 600 Mg Tablet) 600 mg PO Q6H PRN PRN Reason: low back pain Last Admin: 06/30/23 08:19 Dose: 600 mg Lidocaine (Lidocaine 4 % Patch Adh..Patch) 1 patch TRANSDERMA DAILY [facility]; Protocol Last Admin: 07/01/23 09:53 Dose: Not Given Magnesium Hydroxide (Milk Of Magnesia 30 Ml Oral.Susp) 30 ml PO DAILY PRN PRN Reason: Constipation Melatonin (Melatonin 3 Mg Tablet) 6 mg PO BEDTIME PRN PRN Reason: insomnia Nicotine (Nicotine 21 Mg Patch.Td24) 21 mg TRANSDERMA DAILY [facility] Last Admin: 07/01/23 09:31 Dose: 21 mg Nicotine Polacrilex (Nicotine Polacrilex 2 Mg Gum) 4 mg BUCCAL Q2H PRN PRN Reason: Nicotine Cravings Last Admin: 06/29/23 12:51 Dose: 4 mg Paliperidone Palmitate (Paliperidone Palmitate 156 Mg/Ml Syringe) 156 mg IM Q30D [facility] Quetiapine Fumarate (Quetiapine Fumarate 100 Mg Tablet) 100 mg PO BEDTIME [facility] Last Admin: 06/30/23 21:49 Dose: 100 mg Quetiapine Fumarate (Quetiapine Fumarate 100 Mg Tablet) 100 mg PO BEDTIME PRN PRN Reason: insomnia Quetiapine Fumarate (Quetiapine Fumarate 50 Mg Tablet) 50 mg PO Q4H PRN PRN Reason: agitation/psychosis Trazodone HCl (Trazodone Hcl 50 Mg Tablet) 50 mg PO BEDTIME MRX1 PRN PRN Reason: Insomnia Allergies Allergies Allergy/AdvReac Type Severity Reaction Status Date / Time Penicillins Allergy Unknown Verified 03/02/23 17:39 Assessment & Plan Assessment & Plan (1) Schizoaffective disorder: Status: Acute Code(s): F25.9 - Schizoaffective disorder, unspecified (2) Cannabis use disorder: Status: Acute Code(s): F12.90 - Cannabis use, unspecified, uncomplicated Plan pt adm with psychosis suicidal I had agitation that seems to be improving will restart Invega sustain a 156 mg Patient educated on: diagnosis and medication risk/benefits Informed Consent: further education needed Reason for continued inpatient stay Substantial Risk for: harm to self Time Spent With Patient Time: Total time managing care of this patient today ____ minutes.
[2023-07-01 23:06] VITALS: BP 141/84; PULSE 99; RESP 16; TEMP 36.4; O2SAT 97
[2023-07-01] MEDS: QUEtiapine Fumarate 100 MG TABLET PO (23:09)
[2023-07-02 07:20] VITALS: BP 140/87; PULSE 78; RESP 18; TEMP 36.1; O2SAT 97
[2023-07-02] MEDS: Nicotine 21 MG PATCH.TD24 TRANSDERMA (09:19)
[2023-07-02] MEDS: DULoxetine HCl 30 MG CAPSULE.DR PO (09:20)
[2023-07-02] MEDS: Paliperidone Palmitate 156 MG/ML SYRINGE IM (10:22)
--- NOTE | 2023-07-02 13:32 | P.PNPSI_ITS ---
Subjective Subjective Date of Service: 07/02/23 Reason For Visit: F20.9 Subjective Notes: Conditional Voluntary and 3 Day Interim History: Patient was seen and discussed in rounds today. Records and plans were reviewed. He has been stable, received his Invega shot today. No complaints or side effects. Eating and sleeping well. Blood pressure was very slightly elevated today. No changes were made today Review of Systems Review of Systems Yes all other systems are reviewed and are negative Mental Status Exam Mental Status Exam Patient Appearance: Appropriate Patient Orientation: Person, Place, Time and Situation Level of Consciousness: Awake and Alert Patient Behavior: Talkative, Cooperative, Anxious and Good Eye Contact Mood Description: Anxious and Apprehensive Affect Description: Constricted, Depressed and Apprehensive Patient Cognition Impaired: No Ability to Follow Directions: Good Speech Pattern: Spontaneous Speech Memory Description: Intact Hallucinations: Auditory Delusions: Paranoid Ideation Thought Process: Intact Thought Content: positive for Intact Depressive Symptoms: Increased Anxiety, Thoughts of /Suicide and Difficulty Concentrating Judgement: Fair Judgement and Insight: Less agitated excepting of treatment Diagnostics Vital Signs (24Hr): Vital Signs - 24 hr 07/01/23 23:06 07/02/23 07:20 Temperature 97.6 F 97.0 F Pulse Rate 99 78 Respiratory Rate 16 18 Blood Pressure 141/84 H 140/87 H Pulse Oximetry 97 97 Oxygen Delivery Method Room Air Room Air Labs 06/29/23 07:52 06/29/23 07:52 Medications Medications Current Medications Acetaminophen (Acetaminophen 325 Mg Tablet) 650 mg PO Q6H PRN PRN Reason: Headache/Pain Mild Scale (1-3) Last Admin: 06/30/23 21:48 Dose: 650 mg Al Hydroxide/Mg Hydroxide (Magnesium Hydrox/Alum Hydrox 30 Ml Oral.Susp) 30 ml PO Q6H PRN PRN Reason: Heartburn/Nausea Albuterol Sulfate (Albuterol Sulfate 90 Mcg 8 Gm Inhaler) 2 puff INHALE RQ4H PRN PRN Reason: wheeze Clonidine HCl (Clonidine Hcl 0.1 Mg Tablet) 0.1 mg PO Q4H PRN; Protocol PRN Reason: Anxiety Duloxetine HCl (Duloxetine Hcl 30 Mg Capsule.Dr) 30 mg PO DAILY [facility] Last Admin: 07/02/23 09:20 Dose: 30 mg Hydrocortisone (Hydrocortisone 1 % Cream 28.35 Gm Tube) 1 appl TOPICAL BID PRN; Protocol PRN Reason: Dry Skin Hydroxyzine HCl (Hydroxyzine Hcl 50 Mg Tablet) 50 mg PO QID PRN PRN Reason: Anxiety Last Admin: 07/01/23 11:51 Dose: 50 mg Ibuprofen (Ibuprofen 600 Mg Tablet) 600 mg PO Q6H PRN PRN Reason: low back pain Last Admin: 06/30/23 08:19 Dose: 600 mg Lidocaine (Lidocaine 4 % Patch Adh..Patch) 1 patch TRANSDERMA DAILY [facility]; Protocol Last Admin: 07/02/23 09:23 Dose: Not Given Magnesium Hydroxide (Milk Of Magnesia 30 Ml Oral.Susp) 30 ml PO DAILY PRN PRN Reason: Constipation Melatonin (Melatonin 3 Mg Tablet) 6 mg PO BEDTIME PRN PRN Reason: insomnia Nicotine (Nicotine 21 Mg Patch.Td24) 21 mg TRANSDERMA DAILY [facility] Last Admin: 07/02/23 09:19 Dose: 21 mg Nicotine Polacrilex (Nicotine Polacrilex 2 Mg Gum) 4 mg BUCCAL Q2H PRN PRN Reason: Nicotine Cravings Last Admin: 06/29/23 12:51 Dose: 4 mg Paliperidone Palmitate (Paliperidone Palmitate 156 Mg/Ml Syringe) 156 mg IM Q30D [facility] Last Admin: 07/02/23 10:22 Dose: 156 mg Quetiapine Fumarate (Quetiapine Fumarate 100 Mg Tablet) 100 mg PO BEDTIME [facility] Last Admin: 07/01/23 23:09 Dose: 100 mg Quetiapine Fumarate (Quetiapine Fumarate 100 Mg Tablet) 100 mg PO BEDTIME PRN PRN Reason: insomnia Quetiapine Fumarate (Quetiapine Fumarate 50 Mg Tablet) 50 mg PO Q4H PRN PRN Reason: agitation/psychosis Trazodone HCl (Trazodone Hcl 50 Mg Tablet) 50 mg PO BEDTIME MRX1 PRN PRN Reason: Insomnia Allergies Allergies Allergy/AdvReac Type Severity Reaction Status Date / Time Penicillins Allergy Unknown Verified 03/02/23 17:39 Assessment & Plan Assessment & Plan (1) Schizoaffective disorder: Status: Acute Code(s): F25.9 - Schizoaffective disorder, unspecified (2) Cannabis use disorder: Status: Acute Code(s): F12.90 - Cannabis use, unspecified, uncomplicated Plan pt adm with psychosis suicidal I had agitation that seems to be improving will restart Invega sustain a 156 mg 07/02: Continue current plans and regimen Reason for continued inpatient stay Substantial Risk for: med/psych decompensation Time Spent With Patient Time: Total time managing care of this patient today ____ minutes.
[2023-07-02] MEDS: Acetaminophen 325 MG TABLET 650 MG PO ×2 (13:48→20:49)
[2023-07-02] MEDS: Ibuprofen 600 MG TABLET PO (18:23)
[2023-07-02 20:43] VITALS: BP 139/88; PULSE 104; RESP 17; TEMP 36.5; O2SAT 96
[2023-07-02] MEDS: QUEtiapine Fumarate 100 MG TABLET PO (20:49)
[2023-07-03 07:55] VITALS: BP 123/83; PULSE 75; RESP 18; TEMP 36.8; O2SAT 98
[2023-07-03] MEDS: DULoxetine HCl 30 MG CAPSULE.DR PO (10:30)
[2023-07-03] MEDS: Nicotine 21 MG PATCH.TD24 TRANSDERMA (10:30)
--- NOTE | 2023-07-03 11:21 | HO.PSYCHPN ---
Subjective Subjective Date of Service: 07/03/23 Reason For Visit: F20.9 Subjective Notes: Conditional Voluntary and 3 Day Interim History: Patient was seen and discussed in rounds today. Records and plans were reviewed. He is doing well and continues to be stable. Attending some groups. He denies any side effects. He did receive his shot yesterday for Invega. Eating and sleeping adequately. No changes were made today Review of Systems Review of Systems Yes all other systems are reviewed and are negative Mental Status Exam Mental Status Exam Narrative: In today's visit he is alert, interactive. Soft-spoken speech. Moderate eye contact. No overt signs of psychosis but has some auditory hallucinations her. No SI/HI. Cognitively is grossly intact. Judgment and Diagnostics Vital Signs (24Hr): Vital Signs - 24 hr 07/02/23 20:43 07/03/23 07:55 Temperature 97.7 F 98.2 F Pulse Rate 104 H 75 Respiratory Rate 17 18 Blood Pressure 139/88 123/83 Pulse Oximetry 96 98 Oxygen Delivery Method Room Air Room Air Labs 06/29/23 07:52 06/29/23 07:52 Medications Medications Current Medications Acetaminophen (Acetaminophen 325 Mg Tablet) 650 mg PO Q6H PRN PRN Reason: Headache/Pain Mild Scale (1-3) Last Admin: 07/02/23 20:49 Dose: 650 mg Al Hydroxide/Mg Hydroxide (Magnesium Hydrox/Alum Hydrox 30 Ml Oral.Susp) 30 ml PO Q6H PRN PRN Reason: Heartburn/Nausea Albuterol Sulfate (Albuterol Sulfate 90 Mcg 8 Gm Inhaler) 2 puff INHALE RQ4H PRN PRN Reason: wheeze Clonidine HCl (Clonidine Hcl 0.1 Mg Tablet) 0.1 mg PO Q4H PRN; Protocol PRN Reason: Anxiety Duloxetine HCl (Duloxetine Hcl 30 Mg Capsule.Dr) 30 mg PO DAILY [facility] Last Admin: 07/03/23 10:30 Dose: 30 mg Hydrocortisone (Hydrocortisone 1 % Cream 28.35 Gm Tube) 1 appl TOPICAL BID PRN; Protocol PRN Reason: Dry Skin Hydroxyzine HCl (Hydroxyzine Hcl 50 Mg Tablet) 50 mg PO QID PRN PRN Reason: Anxiety Last Admin: 07/01/23 11:51 Dose: 50 mg Ibuprofen (Ibuprofen 600 Mg Tablet) 600 mg PO Q6H PRN PRN Reason: low back pain Last Admin: 07/02/23 18:23 Dose: 600 mg Lidocaine (Lidocaine 4 % Patch Adh..Patch) 1 patch TRANSDERMA DAILY [facility]; Protocol Last Admin: 07/03/23 10:31 Dose: Not Given Magnesium Hydroxide (Milk Of Magnesia 30 Ml Oral.Susp) 30 ml PO DAILY PRN PRN Reason: Constipation Melatonin (Melatonin 3 Mg Tablet) 6 mg PO BEDTIME PRN PRN Reason: insomnia Nicotine (Nicotine 21 Mg Patch.Td24) 21 mg TRANSDERMA DAILY [facility] Last Admin: 07/03/23 10:30 Dose: 21 mg Nicotine Polacrilex (Nicotine Polacrilex 2 Mg Gum) 4 mg BUCCAL Q2H PRN PRN Reason: Nicotine Cravings Last Admin: 06/29/23 12:51 Dose: 4 mg Paliperidone Palmitate (Paliperidone Palmitate 156 Mg/Ml Syringe) 156 mg IM Q30D [facility] Last Admin: 07/02/23 10:22 Dose: 156 mg Quetiapine Fumarate (Quetiapine Fumarate 100 Mg Tablet) 100 mg PO BEDTIME [facility] Last Admin: 07/02/23 20:49 Dose: 100 mg Quetiapine Fumarate (Quetiapine Fumarate 100 Mg Tablet) 100 mg PO BEDTIME PRN PRN Reason: insomnia Quetiapine Fumarate (Quetiapine Fumarate 50 Mg Tablet) 50 mg PO Q4H PRN PRN Reason: agitation/psychosis Trazodone HCl (Trazodone Hcl 50 Mg Tablet) 50 mg PO BEDTIME MRX1 PRN PRN Reason: Insomnia Allergies Allergies Allergy/AdvReac Type Severity Reaction Status Date / Time Penicillins Allergy Unknown Verified 03/02/23 17:39 Assessment & Plan Assessment & Plan (1) Schizoaffective disorder: Status: Acute Code(s): F25.9 - Schizoaffective disorder, unspecified (2) Cannabis use disorder: Status: Acute Code(s): F12.90 - Cannabis use, unspecified, uncomplicated Plan pt adm with psychosis suicidal I had agitation that seems to be improving will restart Invega sustain a 156 mg 07/02: Continue current plans and regimen 07/03:Continue current regimen and plans Reason for continued inpatient stay Substantial Risk for: med/psych decompensation Time Spent With Patient Time: Total time managing care of this patient today ____ minutes.
[2023-07-03 19:25] VITALS: BP 139/83; PULSE 100; TEMP 36.6; O2SAT 98
[2023-07-03] MEDS: QUEtiapine Fumarate 100 MG TABLET PO (20:06)
[2023-07-04 07:45] VITALS: BP 125/81; PULSE 85; TEMP 36.6; O2SAT 96
[2023-07-04] MEDS: Nicotine 21 MG PATCH.TD24 TRANSDERMA (08:17)
[2023-07-04] MEDS: DULoxetine HCl 30 MG CAPSULE.DR PO (08:17)
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
[2023-07-04] MEDS: QUEtiapine Fumarate 100 MG TABLET PO (20:29)
[2023-07-04 20:31] VITALS: BP 136/89; PULSE 103; RESP 16; TEMP 36.4; O2SAT 96
[2023-07-05 07:41] VITALS: BP 135/78; PULSE 92; RESP 16; TEMP 36.2; O2SAT 97
[2023-07-05] MEDS: DULoxetine HCl 30 MG CAPSULE.DR PO (08:18)
== END 2023-07-05 11:35 | disposition home or self-care (01) | DRG 885 ==
PROVIDERS: Admitting Provider Psychiatry & Neurology Psychiatry; Visit Provider Psychiatry & Neurology Psychiatry
DX: F25.9 Schizoaffective disorder, unspecified (principal); F17.210 Nicotine dependence, cigarettes, uncomplicated; F43.10 Post-traumatic stress disorder, unspecified; F90.9 Attention-deficit hyperactivity disorder, unspecified type; M54.59 Other low back pain; G89.29 Other chronic pain; J45.20 Mild intermittent asthma, uncomplicated; Z71.6 Tobacco abuse counseling; Z79.899 Other long term (current) drug therapy
CPT/HCPCS: 36415; 80053; 80061; 82607; 82746; 83036; 84439; 84443; 85025; J2426

== ENCOUNTER → 2023-06-28 16:16 | Outpatient (BNV) | payer OTHER, SELFPAY | PROVIDERS: Admitting Provider Psychiatry & Neurology Psychiatry; Visit Provider Physician Assistant | DX: Z02.2 Encounter for examination for admission to residential institution (principal) | CPT/HCPCS: 99429 ==

== ENCOUNTER → 2023-06-28 16:16 | Outpatient (BNV) | payer OTHER, SELFPAY | PROVIDERS: Admitting Provider Psychiatry & Neurology Psychiatry; Visit Provider Psychiatry & Neurology Psychiatry | DX: F25.1 Schizoaffective disorder, depressive type (principal); F12.90 Cannabis use, unspecified, uncomplicated | CPT/HCPCS: 90792; 99232 ==

== ENCOUNTER → 2023-06-28 16:16 | Outpatient (BNV) | payer OTHER, SELFPAY | PROVIDERS: Admitting Provider Psychiatry & Neurology Psychiatry; Visit Provider Psychiatry & Neurology Psychiatry | DX: F25.1 Schizoaffective disorder, depressive type (principal); F12.90 Cannabis use, unspecified, uncomplicated | CPT/HCPCS: 99231; 99232; 99239 ==